=== PATIENT | male | born 1960 | race Two or more races ===

== ENCOUNTER 2020-12-15 09:52 | Outpatient (REF) | payer OTHER, SELFPAY ==
[2020-12-15 10:36] LABS: COVID-19 Test Negative (Negative)
== END 2020-12-15 09:53 | disposition home or self-care (01) ==
LOC: HO.LAB 09:52
PROVIDERS: Visit Provider Internal Medicine
DX: Z20.822 Contact with and (suspected) exposure to COVID-19 (principal)
CPT/HCPCS: 36415; 87635; C9803

== ENCOUNTER 2023-08-07 11:00 | Outpatient (RCR) | payer MEDICAID, SELFPAY | END 2023-08-21 15:44 | disposition home or self-care (01) | LOC: HO.PT 11:00 | PROVIDERS: PCP Physician Assistant; Visit Provider Physician Assistant Surgical | DX: M51.36 Other intervertebral disc degeneration, lumbar region (principal) | CPT/HCPCS: 97110; 97162; 97530 ==